=== PATIENT | female | born 1980 | race Caucasian/White ===

== ENCOUNTER → 2016-11-05 | Outpatient (CLI) | payer BC ==
[~2016-11-05] MED LIST: AMBI5TAB PO; PRENTAB50 PO; ZOLO50TA PO; [UNRECOGNIZED DRUG - CODE] PO
== END ==
LOC: HPND 09:16
PROVIDERS: ATTEND Obstetrics & Gynecology
DX: O09.521 Supervision of elderly multigravida, first trimester (principal); O34.211 Maternal care for low transverse scar from previous cesarean delivery; Z3A.13 13 weeks gestation of pregnancy
CPT/HCPCS: 36416; 76813

== ENCOUNTER → 2016-12-10 | Outpatient (CLI) | payer BC | LOC: HPND 09:09 | PROVIDERS: ATTEND Obstetrics & Gynecology | DX: O09.522 Supervision of elderly multigravida, second trimester (principal) | CPT/HCPCS: 76811 ==

== ENCOUNTER 2017-04-26 13:37 | Inpatient (IN) | payer SELFPAY ==
[~2017-04-26] VITALS: Ht 162.6 cm; Wt 81.6 kg
[2017-04-26] VITALS (41 sets, daily range): BP systolic 101–144; BP diastolic 62–109; PULSE 67–109; RESP 16–18; TEMP 97.7–98.7; O2SAT 98
[2017-04-26] MEDS ORDERED: LACTATED RINGER'S 1000 ML INJ 1,000 ML IV PRN (13:57)
[2017-04-26] MEDS ORDERED: LACTATED RINGER'S 1000 ML INJ 1,000 ML IV SCH (13:57)
[2017-04-26] MEDS ORDERED: LIDOCAINE HCL 1% 50 ML VIAL INFIL PRN (14:00)
[2017-04-26] MEDS ORDERED: SODIUM CHLORID 0.9% 500 ML INJ 500 ML IV PRN (14:00)
[2017-04-26] MEDS ORDERED: CITRIC ACID-SODIUM CITRATE LIQ 30 ML UDC PO SCH (14:00)
[2017-04-26] MEDS ORDERED: MINERAL OIL 10 ML VIAL TOPICAL PRN (14:00)
[2017-04-26] MEDS ORDERED: LIDOCAINE HCL 1% 50 ML VIAL I-DERMAL PRN (14:00)
[2017-04-26] MEDS ORDERED: OXYTOCIN 30 UNITS-500ML PREMIX 500 ML IV ONE (14:00)
[2017-04-26] MEDS ORDERED: ALPR.25 PO (14:04)
[2017-04-26] MEDS ORDERED: SODIUM CHLOR 0.9% 1000 ML INJ 1,000 ML IV PRN (14:17)
--- NOTE | 2017-04-26 14:36 | MH ---
cc: MELANIE COLLAZO DATE OF ADMISSION: 04/26/2017 ADMITTING DIAGNOSIS: 1. at 37-38 weeks, active labor. 2. Previous section. 3. Previous x2 HISTORY OF PRESENT ILLNESS: The patient is a 36-year-old white female para 3-0-0-2 with last menstrual period of 08/04/2016 and estimated date of confinement of 05/11/2017. Her preop course was benign. Her first delivery was by . Her second and third were successful VBACs. The second child at 3 months of age from a viral syndrome. ALLERGIES: Penicillin. PAST MEDICAL HISTORY: 1. Anxiety. 2. Depression. TRANSFUSIONS: None. OBSTETRICAL HISTORY: As mentioned in the history of present illness. SOCIAL HISTORY She is , homemaker. Alcohol, tobacco and drugs are none. FAMILY HISTORY: Her family history noncontributory. PHYSICAL EXAMINATION: GENERAL: A well-nourished well-developed white female. VITAL SIGNS: Stable. HEAD, EYES, EARS, NOSE, THROAT: Normal. CHEST: Clear. HEART: Regular rate. BREASTS: Symmetrical. ABDOMEN: Gravid. Estimated weight of 3300 grams. PELVIC EXAM: The cervix is 4 intact vertex. Heart tracing is normal. ASSESSMENT: As above. PLAN: She is now admitted for delivery. The patient requests an epidural. She is GBS negative. Anticipate a vaginal delivery. Should she have failure to progress or distress, would need a delivery and the patient wishes to proceed. MD CHRIS Hand/CHHAYA /2:01 PM /2:26 PM
[2017-04-26] MEDS ORDERED: fentaNYL 2MCG-BUPIV 0.125% INJ 100 ML ONE (14:56)
[2017-04-26 15:00] LABS: BASOPHIL % 0.4 % (0.0-2.0); EOSINOPHIL # 0.1 TH/MM3 (0-0.4); EOSINOPHIL % 0.5 % (0.0-4.0); HEMATOCRIT 34.3 % (35.0-46.0); HEMOGLOBIN 11.9 GM/DL (11.6-15.3); LYMPH % 13.7 % (9.0-44.0); LYMPHOCYTE # 1.7 TH/MM3 (1.0-4.8); MEAN CELL VOLUME 93.1 FL (80.0-100.0); MEAN CORPUSCULAR HEMOGLOBIN 32.3 PG (27.0-34.0); MEAN CORPUSCULAR HGB CONC 34.7 % (32.0-36.0); MEAN PLATELET VOLUME 7.5 FL (7.0-11.0); MONO % 5.6 % (0.0-8.0); MONOCYTE # 0.7 TH/MM3 (0-0.9); NEUT % 79.8 % (16.0-70.0); PLATELET COUNT 137 TH/MM3 (150-450); RED BLOOD COUNT 3.68 MIL/MM3 (4.00-5.30); RED CELL DISTRIBUTION WIDTH 12.5 % (11.6-17.2); WHITE BLOOD COUNT 12.5 TH/MM3 (4.0-11.0)
[2017-04-26] MEDS ORDERED: ePHEDrine/NS 25 MG/5 ML SYRINGE ONE (15:10)
[2017-04-26 15:28] LABS: BACTERIA, URINE RARE /hpf; BILIRUBIN, URINE NEG (NEG); BLOOD, URINE NEG (NEG); GLUCOSE,URINE NEG (NEG); KETONE, URINE TRACE mg/dL (NEG); NITRITE,URINE NEG (NEG); SQUAMOUS EPITHELIAL CELL URINE 1 /hpf (0-5); URINE COLOR LIGHT-YELLOW (YELLW/STRAW); URINE LEUKOCYTE ESTERASE NEG (NEG)
[2017-04-26] MEDS ORDERED: MEASLES, MUMPS, RUBELLA VACCINE 0.5 ML VIAL SQ ONE (16:00)
[2017-04-26] MEDS ORDERED: OXYTOCIN 30 UNITS/NS 500ML PREMIX IV PRN (18:30)
[2017-04-26] MEDS ORDERED: DOCUSATE SODIUM 50 MG/SENNA 8.6 MG TAB PO PRN (19:00)
[2017-04-26] MEDS ORDERED: WITCH HAZEL 50%/GLYCERIN 12.5% 40 PAD JAR TOPICAL PRN (19:00)
[2017-04-26] MEDS ORDERED: ALUMINUM/MAGNESIUM/SIMETH 30 ML CUP PO PRN (19:00)
[2017-04-26] MEDS ORDERED: ONDANSETRON ODT 4 MG TAB PO PRN (19:00)
[2017-04-26] MEDS ORDERED: SODIUM CHLORIDE 0.9% FLUSH 10 ML FLUSH IV FLUSH PRN (19:00)
[2017-04-26] MEDS ORDERED: OXYTOCIN 30 UNITS-500ML PREMIX 500 ML IV SCH (19:00)
[2017-04-26] MEDS ORDERED: ZOLPIDEM TARTRATE 5 MG TAB PO PRN (19:00)
[2017-04-26] MEDS ORDERED: BENZOCAINE 20% TOPICAL SPRAY 60 ML CAN TOPICAL PRN (19:00)
[2017-04-26] MEDS ORDERED: oxyCODONE/ACETAMINOPHEN 5 MG/325 MG TAB PO PRN ×2 (19:00)
[2017-04-26] MEDS ORDERED: SODIUM CHLORIDE 0.9% FLUSH 10 ML FLUSH IV FLUSH SCH (21:00)
[2017-04-26] MEDS: IBUPROFEN 800 MG TAB PO PRN (22:44)
[2017-04-27 05:54] LABS: AUTOMATED NEUTROPHIL # 7.8 TH/MM3 (1.8-7.7); BASOPHIL % 0.2 % (0.0-2.0); EOSINOPHIL # 0.1 TH/MM3 (0-0.4); HEMATOCRIT 30.5 % (35.0-46.0); LYMPH % 18.9 % (9.0-44.0); LYMPHOCYTE # 2.1 TH/MM3 (1.0-4.8); MEAN CELL VOLUME 92.2 FL (80.0-100.0); MEAN CORPUSCULAR HEMOGLOBIN 33.2 PG (27.0-34.0); MEAN PLATELET VOLUME 7.2 FL (7.0-11.0); MONO % 8.6 % (0.0-8.0); MONOCYTE # 0.9 TH/MM3 (0-0.9); NEUT % 71.3 % (16.0-70.0); PLATELET COUNT 123 TH/MM3 (150-450); RED BLOOD COUNT 3.31 MIL/MM3 (4.00-5.30); RED CELL DISTRIBUTION WIDTH 12.7 % (11.6-17.2)
[2017-04-27] MEDS: IBUPROFEN 800 MG TAB PO PRN ×2 (07:01→14:38)
[2017-04-27 08:00] VITALS: BP 105/69; PULSE 63; RESP 17; TEMP 97.6
[2017-04-27] MEDS ORDERED: DIPHTH/TETANUS/ACEL PERTUSSIS (BOOSTER) 0.5 ML VIAL/PFS IM ONE (17:45)
[2017-04-27] MEDS ORDERED: DIPHTH/TETANUS/ACELL PERTUSSIS PEDS 0.5 ML VIAL IM ONE (17:45)
[2017-04-27] MEDS: ACETAMINOPHEN 325 MG TAB PO PRN ×2 (18:02→21:11)
[2017-04-27 20:00] VITALS: BP 119/73; PULSE 74; RESP 18; TEMP 98; O2SAT 97
[2017-04-28] MEDS: IBUPROFEN 800 MG TAB PO PRN (03:50)
[2017-04-28 08:00] VITALS: BP 108/74; PULSE 60; RESP 18; TEMP 97.9; O2SAT 98
--- NOTE | 2017-04-28 08:08 | HHI.DCPOC ---
Discharge Care Plan Report Symptoms to Your Doctor -Temperature above 100.5 degrees -Redness, of incision or excessive or foul smelling drainage -Unusual pain or calf pain -Increased vaginal bleeding -Painful or difficulty urinating -Feelings of extreme sadness or anxiety after 2 weeks Goals to Promote Your Health * To prevent worsening of your condition and complications * To maintain your health at the optimal level Directions to Meet Your Goals Take your medications as prescribed Follow your dietary instruction Follow activity as directed Ensure plenty of rest for recovery Drink fluids for hydration Keep your appointments as scheduled Take your immunizations and boosters as scheduled If your symptoms worsen call your PCP, if no PCP go to Urgent Care Center or Emergency Room Smoking is Dangerous to Your Health. Avoid second hand smoke Call the 24-hour crisis hotline for domestic abuse at Robbin Meyer MD Apr 28, 2017 08:08
[2017-04-28] MEDS ORDERED: INFLUENZA VIRUS VACCINE (QUADRIVALENT) 0.5 ML SYR IM ONE (10:00)
--- NOTE | 2017-05-02 21:23 | MD ---
cc: MELANIE COLLAZO ADMISSION DATE: 04/26/2017 DISCHARGE DATE: 04/28/2017 ADMISSION DIAGNOSIS 1. at 38 weeks, active labor. 2. Previous . DISCHARGE DIAGNOSIS 1. at 38 weeks, active labor. 2. Previous . 3. Delivered. HISTORY OF PRESENT ILLNESS A 36-year-old white female para 3-0-0-2, had an LMP of 08/04/2016, EDC of 05/11/2017. She developed active labor on 04/18/17, was admitted to the hospital for delivery. She received epidural anesthesia, had arrested labor and was given Pitocin augmentation. She then progressed to a spontaneous vaginal delivery over an intact perineum, a viable vigorous male, Apgars 9 and 9. did well, discharged home in excellent condition on 04/28/2017. PAST MEDICAL HISTORY Notable for first delivery by for failure to progress and distress. Second, third and current delivered by . Past medical history notable anxiety and depression well-controlled with medical therapy. ALLERGIES PENICILLIN TRANSFUSIONS None. Her blood type is positive. GBS culture was negative. She was advised NPV light activity and carefully instructed in perineal and instruction in care. Return to see me in 6 weeks and call if any abnormal symptoms. She will continue her Zoloft, Xanax and vitamins. MD CHRIS Hand/ /8:09 AM /9:05 PM
== END 2017-04-28 10:56 | disposition home or self-care (01) | DRG 775 ==
LOC: HOBED 13:37 → H2EB 14:04 → H1EA 21:53
PROVIDERS: ADMIT Obstetrics & Gynecology; ATTEND Obstetrics & Gynecology
PROC: 10E0XZZ Delivery of Products of Conception, External Approach (ICD-10-PCS; principal; 2017-04-26)
PROC: 3E0R3BZ Introduction of Anesthetic Agent into Spinal Canal, Percutaneous Approach (ICD-10-PCS; 2017-04-26)
PROC: 00HU33Z Insertion of Infusion Device into Spinal Canal, Percutaneous Approach (ICD-10-PCS; 2017-04-26)
DX: O34.219 Maternal care for unspecified type scar from previous cesarean delivery (principal); O62.1 Secondary uterine inertia; O99.340 Other mental disorders complicating pregnancy, unspecified trimester; F32.9 Major depressive disorder, single episode, unspecified; F41.9 Anxiety disorder, unspecified; Z37.0 Single live birth; Z3A.38 38 weeks gestation of pregnancy; Z23 Encounter for immunization
CPT/HCPCS: 59025; 80307; 81001; 85025; 87086; 90686; 90715; 99285; G0481; Q2038

== ENCOUNTER 2017-05-01 14:48 | Observation (INO) | payer BC ==
[~2017-05-01] VITALS: Ht 160 cm; Wt 80.0 kg
[~2017-05-01 14:48] MED LIST changes: +ALPR.25 PO; -AMBI5TAB PO; -[UNRECOGNIZED DRUG - CODE] PO
[2017-05-01 14:51] VITALS: BP 169/97; PULSE 54; RESP 17; TEMP 98.1; O2SAT 98
[2017-05-01 16:10] VITALS: BP 159/87; PULSE 61; RESP 21; O2SAT 100
[2017-05-01] MEDS ORDERED: ALPRAZolam 0.25 MG TAB PO ONE (16:30)
[2017-05-01] MEDS ORDERED: PILL SPLITTER OTHER PRN (16:45)
[2017-05-01] MEDS ORDERED: ALPRAZolam 0.5 MG TAB PO ONE (16:45)
--- NOTE | 2017-05-01 17:26 | PD ---
HPI Chief Complaint: Chest Pain Time Seen by Provider: 16:12 Travel History International Travel<30 days: No Contact w/Intl Traveler<30days: No Traveled to known affect area: No History of Present Illness HPI This is a 36-year-old female who presents to the emergency department having onset of right-sided pleuritic chest pain that started yesterday suddenly in the evening, constant, severe, associated with some shortness of breath. She denies any fevers or chills. She denies any nausea or vomiting. She has never had pain like this before. She is 5 days after a . PFSH Past Medical History ?: Not Social History Alcohol Use: No Tobacco Use: No Substance Use: No Allergies-Medications (Allergen,Severity, Reaction): Coded Allergies: penicillin G (Unverified Allergy, Unknown, 04/26/17) Reported Meds & Prescriptions Reported Meds & Active Scripts Active Reported Xanax (Alprazolam) 0.25 Mg Tab 0.25 Mg PO Q8H PRN Zoloft (Sertraline HCl) 50 Mg Tab 50 Mg PO Q6HR PRN Formula A-Free ( Multivitamins) 1 Tab Tab 1 Tab PO DAILY Review of Systems Except as stated in HPI: all other systems reviewed are Neg Physical Exam Narrative GENERAL:Well appearing, no acute distress SKIN: Focused skin assessment warm and dry. HEAD: Atraumatic. Normocephalic. EYES: Pupils equal and round. No injection or drainage. ENT: Moist mucous membranes NECK: Trachea midline. CARDIOVASCULAR: Regular rate and rhythm. No murmur appreciated. RESPIRATORY: Clear to auscultation. Breath sounds equal bilaterally. GASTROINTESTINAL: Abdomen soft tender to palpation in the right upper quadrant with no rebound or guarding. MUSCULOSKELETAL: No obvious deformities. NEUROLOGICAL: Awake and alert. No obvious cranial nerve deficits. Moving all extremities. PSYCHIATRIC: Appropriate mood and affect; insight and judgment normal. Data Data Last Documented VS Vital Signs Date Time Temp Pulse Resp B/P (MAP) Pulse Ox O2 Delivery O2 Flow Rate FiO2 05/01/17 16:17 100 05/01/17 16:10 61 21 159/87 (111) 05/01/17 14:[address] Pulmonary Angiogram (05/01/17 ) Us Abdomen Gallbladder (05/01/17 ) Alprazolam (Xanax) (05/01/17 16:30) Alprazolam (Xanax) (05/01/17 16:45) Pill Splitter (Pill Splitter) (05/01/17 16:45) [facility] Medical Decision Making Medical Screen Exam Complete: Yes Emergency Medical Condition: Yes Differential Diagnosis Pulmonary embolism, cholelithiasis, cholecystitis, acute coronary syndrome Narrative Course This is a 36-year-old female who presents to the emergency department with right -sided pleuritic chest pain that started abruptly yesterday. She is 5 days . Concern is for pulmonary embolism given her symptoms. She also is quite tender in the right upper quadrant. Labs were done in labor and delivery which have normal LFTs. CT pulmonary angiogram and ultrasound of the right upper quadrant will be ordered. Patient was signed out to Dr. Beth for disposition. Massiel Hsieh MD May 01, 2017 17:26
--- NOTE | 2017-05-01 18:00 | RADRPT ---
EXAM DATE/TIME: 05/01/2017 17:14 [facility] COMPARISON: No previous studies available for comparison. INDICATIONS : Right upper quadrant pain. MEDICAL HISTORY : None. SURGICAL HISTORY : None. ENCOUNTER: Initial ACUITY: 3 days PAIN SCORE: 6/10 LOCATION: Right upper quadrant MEASUREMENTS: LIVER: 17.1 cm length COMMON DUCT: 4 mm RIGHT KIDNEY: 11.1 x 4.1 x 4.6 cm FINDINGS: LIVER: Normal echotexture without focal lesion or ductal dilatation. COMMON DUCT: No intraluminal mass or stone visualized. GALLBLADDER: Small calcified gallstones are seen within the neck of the gallbladder. There is gallbladder wall thi ckening which measures 10 mm in thickness. Trace pericholecystic fluid. PANCREAS: The visualized portions are within normal limits. RIGHT KIDNEY: No evidence of hydronephrosis, stone, or mass. CONCLUSION: 1. Sonographic findings suggesting acute cholecystitis. Chidi Horan Jr., MD on May 01, 2017 at 17:56 Board Certified Radiologist. This report was verified electronically.
[2017-05-01] MEDS ORDERED: IOHEXOL 350 MG/ML 10 ML VIAL (for RAD DIAG) IVCONTRAST ONE (18:42)
--- NOTE | 2017-05-01 18:56 | RADRPT ---
EXAM DATE/TIME: 05/01/2017 18:25 [facility] COMPARISON: No previous studies available for comparison. INDICATIONS : Chest pain 5 days post . IV CONTRAST: 80 cc Omnipaque 350 (iohexol) IV RADIATION DOSE: 20.32 CTDIvol (mGy) MEDICAL HISTORY : 5 days post . SURGICAL HISTORY : None. ENCOUNTER: Initial ACUITY: 1 day PAIN SCALE: 5/10 LOCATION: Chest TECHNIQUE: Volumetric scanning of the chest was performed using a pulmonary embolism protocol MIP images were re constructed. Using automated exposure control and adjustment of the mA and/or kV according to patien t size, radiation dose was kept as low as reasonably achievable to obtain optimal diagnostic quality images. DICOM format image data is available electronically for review and comparison. Follow-up recommendations for detected pulmonary nodules are based at a minimum on nodule size and pa tient risk factors according to Fleischner Society Guidelines. FINDINGS: PULMONARY ARTERIES: No filling defects are seen in the pulmonary arteries through the segmental level. LUNGS: There is no consolidation or pneumothorax . No concerning pulmonary nodule is visualized. PLEURAE: There is no pleural thickening or pleural effusion. MEDIASTINUM: There is good visualization of the great vessels of the middle mediastinum. No evidence of mediastin al or hilar adenopathy/mass. MUSCULOSKELETAL: Within normal limits for patient age. MISCELLANEOUS: Hepatosplenomegaly is noted. CONCLUSION: 1. No evidence of pulmonary embolism. 2. Hepatosplenomegaly. Merritt Cazares MD on May 01, 2017 at 18:50 Board Certified Radiologist. This report was verified electronically.
[2017-05-01 18:59] VITALS: BP 172/86; PULSE 56; RESP 16; TEMP 98.1; O2SAT 100
--- NOTE | 2017-05-01 19:42 | PD ---
Physical Exam Date Seen by Provider: May 01, 2017 Time Seen by Provider: 19:39 Narrative 36-year-old female 5 weeks came to the emergency room for pleuritic right-sided chest pain. She was seen by the previous ER physician. Please refer to her history and physical for further details. Signout was to follow- up on the ultrasound and CAT scan of the chest to rule out pulmonary embolism. The study reports are back. Patient does not have a PE but does have acute cholecystitis. Patient has a 5-day-old baby who she is breast-feeding and is currently making a decision whether she wants to stay to get the surgery. I have explained the disease and the process of admission and surgery and answered all the questions to the best of my ability. If patient chooses to stay I will give her a dose of IV antibiotic and admit her to the hospitalist. Awaiting for their decision. There was blood test done by OB this morning that were within acceptable limits. Patient is currently pain tolerant. Data Data Last Documented VS Vital Signs Date Time Temp Pulse Resp B/P (MAP) Pulse Ox O2 Delivery O2 Flow Rate FiO2 05/01/17 18:59 98.1 56 16 172/86 (114) [address] Orders Orders [address] Pulmonary Angiogram (05/01/17 ) Us Abdomen Gallbladder (05/01/17 ) Alprazolam (Xanax) (05/01/17 16:30) Alprazolam (Xanax) (05/01/17 16:45) Pill Splitter (Pill Splitter) (05/01/17 16:45) Iohexol 350 Inj (Omnipaque 350 Inj) (05/01/17 18:42) Kit, Breast Dbl Duet Initiatio (05/01/17 19:42) Admit Order (Ed Use Only) (05/01/17 19:59) [facility] Supervised Visit with ALLYN: No Diagnosis Primary Impression: Acute cholecystitis Admitting Information Admitting Physician Requests: Admit Scripts Hydrocodone-Acetaminophen ([place]) 5 Mg-325 Mg Tab 1 TAB PO Q6H Y for PAIN, #15 TAB 0 Refills Prov: Devang Morales MD 05/02/17 Jackelyn Beth MD May 01, 2017 19:42
[2017-05-01] MEDS ORDERED: ONDANSETRON HCL 4 MG/2 ML VIAL IVP PRN (20:15)
[2017-05-01] MEDS ORDERED: MORPHINE SULFATE 4 MG/ML INJ IV PUSH PRN (20:15)
[2017-05-01] MEDS ORDERED: LACTULOSE SYRUP 20 GM/30 ML CUP PO PRN (20:15)
[2017-05-01] MEDS ORDERED: MORPHINE SULFATE 2 MG/ML INJ IV PUSH PRN (20:15)
[2017-05-01] MEDS ORDERED: ACETAMINOPHEN 325 MG TAB PO PRN (20:15)
[2017-05-01] MEDS ORDERED: SODIUM CHLORIDE 0.9% FLUSH 10 ML FLUSH IV FLUSH PRN (20:15)
[2017-05-01] MEDS ORDERED: SENNOSIDES 8.6 MG TAB PO PRN (20:15)
[2017-05-01] MEDS ORDERED: MAGNESIUM HYDROXIDE SUSP 30 ML CUP PO PRN (20:15)
[2017-05-01] MEDS ORDERED: NALOXONE HCL 0.4 MG/ML AMP IV PUSH PRN (20:15)
[2017-05-01] MEDS ORDERED: BISACODYL 10 MG SUPP RECTAL PRN (20:15)
--- NOTE | 2017-05-01 20:22 | HHI.HP ---
[facility] Service [facility] Primary Care Physician No Primary Care Physician Admission Diagnosis Acute cholecystitis, Diagnoses: Travel History International Travel<30 Days: No Contact w/Intl Traveler <30 Da: No Traveled to Known Affected Are: No History of Present Illness 36-year-old female who is day 5 status post presents to the emergency department complaining of chest pain. She states the chest pain began last night and is worse with inspiration. She called her fashion designer, Dr. Weinstein, who instructed her to come to the emergency department for further evaluation. The patient was seen in the OB ED where preeclampsia was ruled out. She was sent to maintain the ED for further workup. CTA negative for PE. Ultrasound of the gallbladder showed acute cholecystitis. The patient denies nausea/vomiting. Denies fever/chills. Endorses right upper quadrant pain, worse with palpation and deep inspiration. Review of Systems Except as stated in HPI: all other systems reviewed are Neg Past Family Social History Past Medical History Depression/anxiety Past Surgical History 1 Reported Medications Reported Meds & Active Scripts Active Reported Xanax (Alprazolam) 0.25 Mg Tab 0.25 Mg PO Q8H PRN Zoloft (Sertraline HCl) 50 Mg Tab 50 Mg PO Q6HR PRN Formula A-Free ( Multivitamins) 1 Tab Tab 1 Tab PO DAILY Allergies: Coded Allergies: penicillin G (Unverified Allergy, Unknown, 04/26/17) Family History Negative for CAD/DM Social History Denies tobacco, illicit drugs. Occasional alcohol. Physical Exam Vital Signs Vital Signs Date Time Temp Pulse Resp B/P (MAP) Pulse Ox O2 Delivery O2 Flow Rate FiO2 05/01/17 18:59 98.1 56 16 172/86 (114) 100 Room Air 05/01/17 16:17 100 05/01/17 16:10 61 21 159/87 (111) 100 05/01/17 14:51 98.1 54 17 169/97 (121) 98 Physical Exam GENERAL: female sitting up in bed, tearful SKIN: No rashes, ecchymoses or lesions. Cool and dry. HEAD: Atraumatic. Normocephalic. No temporal or scalp tenderness. EYES: Pupils equal round and reactive. Extraocular motions intact. No scleral icterus. No injection or drainage. ENT: Nose without bleeding, purulent drainage or septal hematoma. Throat without erythema, tonsillar hypertrophy or exudate. Uvula midline. Airway patent. NECK: Trachea midline. No JVD or lymphadenopathy. Supple, nontender, no meningeal signs. CARDIOVASCULAR: Regular rate and rhythm without murmurs, gallops, or rubs. RESPIRATORY: Clear to auscultation. Breath sounds equal bilaterally. No wheezes , rales, or rhonchi. GASTROINTESTINAL: Abdomen soft, nondistended. Tender to palpation in the right upper quadrant. Positive Dove's sign. No hepato-splenomegaly, or palpable masses. No guarding. MUSCULOSKELETAL: Extremities without clubbing, cyanosis, or edema. No joint tenderness, effusion, or edema noted. No calf tenderness. NEUROLOGICAL: Awake and alert. Cranial nerves II through XII intact. Motor and sensory grossly within normal limits. Normal speech. Caprini VTE Risk Assessment Caprini VTE Risk Assessment: No/Low Risk (score <= 1) Caprini Risk Assessment Model Point Value = 1 Point Value = 2 Point Value = 3 Point Value = 5 Age 41-60 Minor surgery BMI > 25 kg/m2 Swollen legs Varicose veins or History of unexplained or recurrent spontaneous Oral contraceptives or hormone replacement Sepsis (< 1 month) Serious lung disease, including pneumonia (< 1 month) Abnormal pulmonary function Acute myocardial infarction Congestive heart failure (< 1 month) History of inflammatory bowel disease Medical patient at bed rest Age 61-74 Arthroscopic surgery Major open surgery (> 45 min) Laparoscopic surgery (> 45 min) Malignancy Confined to bed (> 72 hours) Immobilizing plaster cast Central venous access Age >= 75 History of VTE Family history of VTE Factor V Leiden Prothrombin [id number] Lupus anticoagulant Anticardiolipin antibodies Elevated serum homocysteine Heparin-induced thrombocytopenia Other congenital or acquired thrombophilia Stroke (< 1 month) Elective arthroplasty Hip, pelvis, or leg fracture Acute spinal cord injury (< 1 month) Prophylaxis Regimen Total Risk Factor Score Risk Level Prophylaxis Regimen 0-1 Low Early ambulation 2 Moderate Order ONE of the following: *Sequential Compression Device (SCD) *Heparin 5000 units SQ BID 3-4 Higher Order ONE of the following medications: *Heparin 5000 units SQ TID *Enoxaparin/Lovenox 40 mg SQ daily (WT < 150 kg, CrCl > 30 mL/min) *Enoxaparin/Lovenox 30 mg SQ daily (WT < 150 kg, CrCl > 10-29 mL/min) *Enoxaparin/Lovenox 30 mg SQ BID (WT < 150 kg, CrCl > 30 mL/min) AND/OR *Sequential Compression Device (SCD) 5 or more Highest Order ONE of the following medications: *Heparin 5000 units SQ TID (Preferred with Epidurals) *Enoxaparin/Lovenox 40 mg SQ daily (WT < 150 kg, CrCl > 30 mL/min) *Enoxaparin/Lovenox 30 mg SQ daily (WT < 150 kg, CrCl > 10-29 mL/min) *Enoxaparin/Lovenox 30 mg SQ BID (WT < 150 kg, CrCl > 30 mL/min) AND *Sequential Compression Device (SCD) Assessment and Plan Assessment and Plan Assessment/plan: 1. Acute cholecystitis Gallbladder ultrasound findings suggestive of acute cholecystitis Nothing by mouth Rocephin Morphine General surgery consulted, appreciate assistance Anticipate operative intervention in the morning 2. Patient is day #5 status post Reports mild to moderate vaginal bleeding No signs of infection Monitor 3. Anxiety Ativan when necessary FEN NPO Electrolytes: monitor and replete prn NS at 100 cc/hr Ambulation Physician Certification 2 Midnight Certification Type: Admission for Inpatient Services Order for Inpatient Services The services are ordered in accordance with Medicare regulations or non- Medicare payer requirements, as applicable. In the case of services not specified as inpatient-only, they are appropriately provided as inpatient services in accordance with the 2-midnight benchmark. Estimated LOS (days): 2 2 days is the estimated time the patient will need to remain in the hospital, assuming treatment plan goals are met and no additional complications. Post-Hospital Plan: Not yet determined Nell Dunn MD May 01, 2017 20:22
[2017-05-01] MEDS ORDERED: SODIUM CHLORIDE 0.9% FLUSH 10 ML FLUSH IV FLUSH SCH (21:00)
[2017-05-01] MEDS ORDERED: cefTRIAXone INJ 1,000 MG in SODIUM CHLORIDE 0.9% INJ 100 ML IV SCH (21:00)
[2017-05-01] MEDS: LORazepam 2 MG/ML VIAL IV PUSH PRN (21:15)
[2017-05-01 22:19] VITALS: BP 152/99; PULSE 55; RESP 16; TEMP 96.9; O2SAT 99
[2017-05-01] MEDS: SODIUM CHLOR 0.9% 1000 ML INJ 1,000 ML IV SCH (22:32)
[2017-05-01] MEDS ORDERED: POVIDONE IODINE 5% (ANTISEPSIS KIT) 4 APPLICATIONS EACH NARE PRN (23:45)
[2017-05-01] MEDS ORDERED: CHLORHEXIDINE GLUCONATE 2 % 1 PACK (2 CLOTHS) TOPICAL PRN (23:45)
[2017-05-01] MEDS ORDERED: LACTATED RINGER'S 1000 ML IV PRN (23:45)
[2017-05-02] VITALS: BP 163/89; PULSE 51; RESP 16; TEMP 96.3; O2SAT 97
[2017-05-02] MEDS ORDERED: traMADol HCL 50 MG TAB PO ONE (01:00)
[2017-05-02] MEDS: LORazepam 2 MG/ML VIAL IV PUSH PRN (01:15)
[2017-05-02 05:00] VITALS: BP 162/95; PULSE 60; RESP 18; TEMP 97.1; O2SAT 98
[2017-05-02] MEDS: SODIUM CHLOR 0.9% 1000 ML INJ 1,000 ML IV SCH (06:35)
[2017-05-02 07:14] LABS: AUTOMATED NEUTROPHIL # 4.5 TH/MM3 (1.8-7.7); BASOPHIL % 0.5 % (0.0-2.0); EOSINOPHIL # 0.2 TH/MM3 (0-0.4); EOSINOPHIL % 2.4 % (0.0-4.0); HEMATOCRIT 34.5 % (35.0-46.0); LYMPH % 27.8 % (9.0-44.0); LYMPHOCYTE # 2.1 TH/MM3 (1.0-4.8); MEAN CELL VOLUME 93.8 FL (80.0-100.0); MEAN CORPUSCULAR HEMOGLOBIN 32.6 PG (27.0-34.0); MEAN CORPUSCULAR HGB CONC 34.7 % (32.0-36.0); MEAN PLATELET VOLUME 7.3 FL (7.0-11.0); MONO % 8.3 % (0.0-8.0); MONOCYTE # 0.6 TH/MM3 (0-0.9); PLATELET COUNT 193 TH/MM3 (150-450); RED BLOOD COUNT 3.67 MIL/MM3 (4.00-5.30); RED CELL DISTRIBUTION WIDTH 12.7 % (11.6-17.2); WHITE BLOOD COUNT 7.4 TH/MM3 (4.0-11.0)
[2017-05-02 07:24] LABS: ALBUMIN 2.7 GM/DL (3.4-5.0); AST (GOT) 58 U/L (15-37); BICARBONATE 24.7 MEQ/L (21.0-32.0); BLOOD UREA NITROGEN 11 MG/DL (7-18); CALCIUM 7.5 MG/DL (8.5-10.1); CHLORIDE 109 MEQ/L (98-107); CREATININE 0.51 MG/DL (0.50-1.00); GLOMERULAR FILTRATION RATE 137 ML/MIN (>89); GLUCOSE,RANDOM 90 MG/DL (74-106); SODIUM (NA) 142 MEQ/L (136-145)
[2017-05-02 07:25] LABS: ALT (GPT) 80 U/L (10-53)
[2017-05-02 07:27] LABS: ALKALINE PHOSPHATASE 108 U/L (45-117); TOTAL BILIRUBIN ADULT 0.3 MG/DL (0.2-1.0); TOTAL PROTEIN 6.2 GM/DL (6.4-8.2)
[2017-05-02] MEDS ORDERED: ceFAZolin INJ 1,000 MG VIAL ONE (07:41)
[2017-05-02] MEDS ORDERED: BUPIVACAINE/EPINEPHRINE 0.5% PF 30 ML VIAL ONE (07:41)
[2017-05-02 08:00] VITALS: BP 145/98; PULSE 63; RESP 17; TEMP 96.4; O2SAT 98
--- NOTE | 2017-05-02 08:07 | MB ---
cc: MELANIE COLLAZO,BEST Atkinson M.D. DATE OF CONSULTATION 05/01/2017 REASON FOR CONSULTATION Cholelithiasis, cholecystitis. HISTORY OF PRESENT ILLNESS This is a pleasant 36-year-old female who 5 days ago had her baby. She then woke up today and was having some exquisite right-sided chest pain, specifically with deep breathing. She never had experienced this pain before. She had an anxiety attack. She came to emergency room. Because of her previous a CT angiography was done to rule out PE which was negative. An ultrasound was done showing inflamed gallbladder consistent with cholecystitis. Her symptomatology she did not realize was she was having pain in her right upper quadrant. She had some mild nausea. Never experienced any pain like this before. REVIEW OF SYSTEMS She had some mild chest pain associated with deep breathing. No neurologic symptoms. No real shortness of breath besides. She does have deep breathing pain. No endocrine, urologic or other GI problems. She has had four pregnancies. She is 5 days out from delivery MEDICATIONS 1. Xanax. 2. vitamins. 3. Zoloft. ALLERGIES PENICILLIN. PHYSICAL EXAMINATION GENERAL: She is sitting up in her room. She points to her right upper quadrant and says she has fairly severe pain. NECK: Supple. CHEST: Clear. HEART: Regular rate. ABDOMEN: , distended with exquisite tenderness in the right upper quadrant. Positive Dove's. EXTREMITIES: Moves all extremities. No clubbing, cyanosis or edema. NEUROLOGIC: She is alert, oriented, somewhat anxious about her medical condition and concerned about her child. LABORATORY DATA White count 8, H&H 11 and 33. Chemistry shows normal LFTs except for AST slightly elevated at 38. Albumin is 2.9. BUN is 12. Urinalysis is clear. IMAGING STUDIES She had a gallbladder ultrasound which showed findings consistent with acute cholecystitis, thick gallbladder wall, cholecystic fluid, gallstones in the neck of the gallbladder. She had a CTA as well with no evidence of PE. ASSESSMENT A pleasant 36-year-old female about 5-6 days with acute cholecystitis fairly symptomatic. PLAN She has been admitted to the hospital. I have gotten some time in the operating room at 8 o'clock tomorrow. I discussed with her in detail the planned operative procedure which will be performed and she appears to understand and is anxious to proceed to she can get home. MD MIKAYLA Tello/JAMAL /9:39 PM /7:54 AM JAYLEN
--- NOTE | 2017-05-02 08:56 | HHI.PR ---
cc: Devang Morales MD Immediate Post Op Note Procedure Date: May 02, 2017 Pre Op Diagnosis: (1) Right upper quadrant pain (2) Gallstones (3) Acute cholecystitis Post Op Diagnosis: (1) Acute cholecystitis (2) Gallstones (3) Right upper quadrant pain Surgeon: Devang Morales Caustic Mixer(s): Please refer to OR record Procedure: Laparoscopic cholecystectomy Findings: Inflamed gallbladder and contents Complications: None Specimen(s) removed: Gallbladder Estimated blood loss: 25 cc Anesthesia: General Drains: None IVF Patient to: PACU Patient Condition: Good Implant/Devices: SEE IMPLANT LOG (if applicable) Date/Time of Procedure: SEE SURGICAL CARE RECORD Devang Morales MD May 02, 2017 08:56
[2017-05-02] MEDS ORDERED: NORC5TAB PO (08:57)
[2017-05-02] MEDS ORDERED: *MEPERIDINE 25 MG INJ VIAL PERIprocedural Use ONLY ONE (09:08)
[2017-05-02] MEDS ORDERED: MIDAZOLAM HCL 2 MG/2 ML VIAL ONE (09:12)
[2017-05-02] MEDS ORDERED: DO NOT ADM ANY ANTICOAGULANT DRUGS PRN (09:30)
[2017-05-02 09:56] VITALS: BP 154/92; PULSE 72; RESP 17; TEMP 96.9; O2SAT 95
--- NOTE | 2017-05-02 11:25 | HHI.PR ---
Subjective Remarks 36-year-old female who is day 5 status post presents to the emergency department complaining of chest pain. She states the chest pain began last night and is worse with inspiration. She called her web services developer, Dr. Weinstein, who instructed her to come to the emergency department for further evaluation. The patient was seen in the OB ED where preeclampsia was ruled out. She was sent to maintain the ED for further workup. CTA negative for PE. Ultrasound of the gallbladder showed acute cholecystitis. The patient denies nausea/vomiting. Denies fever/chills. Endorses right upper quadrant pain, worse with palpation and deep inspiration. 2-3 SP LAP DESTINY BY SURGERY DC TO HOME LATER TODAY DW RN AND PT AND CM SOME ABDOMINAL TENDERNESS Objective Vitals Vital Signs Date Time Temp Pulse Resp B/P (MAP) Pulse Ox O2 Delivery O2 Flow Rate FiO2 05/02/17 09:56 96.9 72 17 154/92 (112) 95 05/02/17 09:45 98.2 70 14 159/95 (116) 99 Room Air 05/02/17 09:30 72 13 142/89 (106) 98 Nasal Cannula 2 05/02/17 09:15 73 14 144/89 (107) 99 Nasal Cannula 2 05/02/17 09:07 97.8 82 14 158/90 (112) 100 Nasal Cannula 2 05/02/17 08:00 96.4 63 17 145/98 (114) 98 05/02/17 05:00 97.1 60 18 162/95 (117) 98 05/02/17 00:00 96.3 51 16 163/89 (113) 97 05/01/17 22:19 96.9 55 16 152/99 (116) 99 05/01/17 21:58 05/01/17 18:59 98.1 56 16 172/86 (114) 100 Room Air 05/01/17 16:17 100 05/01/17 16:10 61 21 159/87 (111) 100 05/01/17 14:51 98.1 54 17 169/97 (121) 98 I/O 05/01/17 05/01/17 05/01/17 05/02/17 05/02/17 05/02/17 07:00 15:00 23:00 07:00 15:00 23:00 Intake Total 700 ml 1020 ml Output Total 700 ml 25 ml Balance 0 ml 995 ml Intake Oral 20 ml IV Total 700 ml 1000 ml Output Urine Total 700 ml Estimated Blood Loss 25 ml # Voids 1 0 Result Diagram: 05/02/1760405/02/17604 Other Results Laboratory Tests Test 05/02/17 06:05 White Blood Count 7.4 TH/MM3 Red Blood Count 3.67 MIL/MM3 Hemoglobin 12.0 GM/DL Hematocrit 34.5 % Mean Corpuscular Volume 93.8 FL Mean Corpuscular Hemoglobin 32.6 PG Mean Corpuscular Hemoglobin Concent 34.7 % Red Cell Distribution Width 12.7 % Platelet Count 193 TH/MM3 Mean Platelet Volume 7.3 FL Neutrophils (%) (Auto) 61.0 % Lymphocytes (%) (Auto) 27.8 % Monocytes (%) (Auto) 8.3 % Eosinophils (%) (Auto) 2.4 % Basophils (%) (Auto) 0.5 % Neutrophils # (Auto) 4.5 TH/MM3 Lymphocytes # (Auto) 2.1 TH/MM3 Monocytes # (Auto) 0.6 TH/MM3 Eosinophils # (Auto) 0.2 TH/MM3 Basophils # (Auto) 0.0 TH/MM3 CBC Comment DIFF FINAL Differential Comment Blood Urea Nitrogen 11 MG/DL Creatinine 0.51 MG/DL Random Glucose 90 MG/DL Total Protein 6.2 GM/DL Albumin 2.7 GM/DL Calcium Level 7.5 MG/DL Alkaline Phosphatase 108 U/L Aspartate Amino Transf (AST/SGOT) 58 U/L Alanine Aminotransferase (ALT/SGPT) 80 U/L Total Bilirubin 0.3 MG/DL Sodium Level 142 MEQ/L Potassium Level 3.5 MEQ/L Chloride Level 109 MEQ/L Carbon Dioxide Level 24.7 MEQ/L Anion Gap 8 MEQ/L Estimat Glomerular Filtration Rate 137 ML/MIN Imaging Last Impressions Gall Bladder Ultrasound 05/01/17 0000 Signed Impressions: Service Date/Time: Monday, May 01, 2017 17:14 - CONCLUSION: 1. Sonographic findings suggesting acute cholecystitis. Chidi Horan Jr., MD CT Angiography 05/01/17 0000 Signed Impressions: Service Date/Time: Monday, May 01, 2017 18:25 - CONCLUSION: 1. No evidence of pulmonary embolism. 2. Hepatosplenomegaly. Merritt Cazares MD Objective Remarks GENERAL: Awake alert oriented talkative and cooperative wants to go home later today SKIN: Warm and dry. HEAD: Atraumatic. Normocephalic. EYES: Pupils equal and round. No scleral icterus. No injection or drainage. Extraocular muscles intact ENT: No nasal bleeding or discharge. Mucous membranes pink and moist. Tongue is midline supple NECK: Trachea midline. No JVD. CARDIOVASCULAR: Regular rate and rhythm. S1 and S2 no S3 or S4 RESPIRATORY: No accessory muscle use. Clear to auscultation. Breath sounds equal bilaterally. GASTROINTESTINAL: Abdomen soft, non-tender, nondistended. Hepatic and splenic margins not palpable. MUSCULOSKELETAL: Extremities without clubbing, cyanosis, or edema. No obvious deformities. NEUROLOGICAL: Awake and alert. No obvious cranial nerve deficits. Motor grossly within normal limits. Five out of 5 muscle strength in the arms and legs. Normal speech. PSYCHIATRIC: Appropriate mood and affect; insight and judgment normal. Procedures Immediate Post Op Note Procedure Date: May 02, 2017 Pre Op Diagnosis: (1) Right upper quadrant pain (2) Gallstones (3) Acute cholecystitis Post Op Diagnosis: (1) Acute cholecystitis (2) Gallstones (3) Right upper quadrant pain Surgeon: Devang Morales Plumbing Installer(s): Please refer to OR record Procedure: Laparoscopic cholecystectomy Findings: Inflamed gallbladder and contents Complications: None Specimen(s) removed: Gallbladder Estimated blood loss: 25 cc Anesthesia: General Drains: None IVF Patient to: PACU Patient Condition: Good Implant/Devices: SEE IMPLANT LOG (if applicable) Date/Time of Procedure: SEE SURGICAL CARE RECORD Medications and IVs Current Medications Alprazolam (Xanax) 0.25 mg ONCE ONCE PO ; Start 05/01/17 at 16:30; Stop 05/01/17 at 16:31; Status DC Alprazolam (Xanax) 0.25 mg ONCE ONCE PO Last administered on 05/01/17at 16:46; Start 05/01/17 at 16:45; Stop 05/01/17 at 16:46; Status DC Miscellaneous (Pill Splitter) 1 ea UNSCH PRN OTHER SEE LABEL COMMENTS; Start at 16:45 Iohexol (Omnipaque 350 Inj) 80 ml STK-MED ONCE IVCONTRAST Last administered on 05/01/17at 18:42; Start 05/01/17 at 18:42; Stop 05/01/17 at 18:43; Status DC Sodium Chloride 1,000 ml @ 100 mls/hr Q10H IV Last administered on 05/02/17at 06 :35; Start 05/01/17 at 20:02 Sodium Chloride (NS Flush) 2 ml UNSCH PRN IV FLUSH FLUSH AFTER USING IV ACCESS ; Start 05/01/17 at 20:15 Sodium Chloride (NS Flush) 2 ml BID IV FLUSH Last administered on 05/01/17at 21: 14; Start 05/01/17 at 21:00 Acetaminophen (Tylenol) 650 mg Q4H PRN PO TEMP > 100.4; Start 05/01/17 at 20:15 Ondansetron HCl (Zofran Inj) 4 mg Q6H PRN IVP NAUSEA OR VOMITING; Start at 20:15 Naloxone HCl (Narcan Inj) 0.4 mg UNSCH PRN IV PUSH SEE LABEL COMMENTS; Start at 20:15 Magnesium Hydroxide (Milk Of Magnesia Liq) 30 ml Q12H PRN PO Mild constipation ; Start 05/01/17 at 20:15 Sennosides (Senokot) 17.2 mg Q12H PRN PO Moderate constipation; Start 05/01/17 at 20:15 Bisacodyl (Dulcolax Supp) 10 mg DAILY PRN RECTAL SEVERE CONSITIPATION; Start at 20:15 Lactulose (Lactulose Liq) 30 ml DAILY PRN PO SEVERE CONSITIPATION; Start at 20:15 Morphine Sulfate (Morphine Inj) 2 mg Q3H PRN IV PUSH pain 1-5 Last administered on 05/01/17at 21:14; Start 05/01/17 at 20:15 Lorazepam (Ativan Inj) 1 mg Q4H PRN IV PUSH anxiety Last administered on at 01:15; Start 05/01/17 at 20:15 Ceftriaxone Sodium 1000 mg/ Sodium Chloride 100 ml @ 200 mls/hr Q24H IV Last administered on 05/01/17at 21:14; Start 05/01/17 at 21:00 Morphine Sulfate (Morphine Inj) 4 mg Q3HR PRN IV PUSH Pain 6-10 Last administered on 05/02/17at 04:44; Start 05/01/17 at 20:15 Lactated Ringer's 1,000 ml @ 30 mls/hr Q24H PRN IV SEE LABEL COMMENTS; Start at 23:45; Stop 05/04/17 at 23:44 Povidone Iodine (Betadine 5% Antisepsis Kit) 1 applic MILK OF LIME SLAKER PRN EACH NARE SEE LABEL COMMENTS; Start 05/01/17 at 23:45; Stop 05/04/17 at 23:44 Chlorhexidine Gluconate (Chlorhexidine 2% Cloth) 3 pack MILK OF LIME SLAKER PRN TOPICAL SEE LABEL COMMENTS; Start 05/01/17 at 23:45; Stop 05/04/17 at 23:44 Tramadol HCl (Ultram) 50 mg ONCE ONCE PO Last administered on 05/02/17at 01:13; Start 05/02/17 at 01:00; Stop 05/02/17 at 01:02; Status DC Bupivacaine HCl/ Epinephrine Bitart (Sensorcaine-Epinephrine Pf 0.5% Inj) 30 ml STK-MED ONCE .ROUTE Last administered on 05/02/17at 08:23; Start 05/02/17 at 07:41 ; Stop 05/02/17 at 07:42; Status DC Cefazolin Sodium (Ancef Inj) 1,000 mg STK-MED ONCE .ROUTE ; Start 05/02/17 at 07: 41; Stop 05/02/17 at 07:42; Status DC Meperidine HCl (*DEMEROL INJ PERIprocedural ONLY) 25 mg STK-MED ONCE .ROUTE Last administered on 05/02/17at 09:08; Start 05/02/17 at 09:08; Stop 05/02/17 at 09: 09; Status DC Fentanyl Citrate (fentaNYL INJ) 100 mcg STK-MED ONCE .ROUTE ; Start 05/02/17 at 09:11; Stop 05/02/17 at 09:12; Status DC Fentanyl Citrate (fentaNYL INJ) 200 mcg STK-MED ONCE .ROUTE ; Start 05/02/17 at 09:12; Stop 05/02/17 at 09:13; Status DC Midazolam HCl (Versed Inj) 2 mg STK-MED ONCE .ROUTE ; Start 05/02/17 at 09:12; Stop 05/02/17 at 09:13; Status DC Miscellaneous Information ALL NURSING DEPARTME... UNSCH PRN .XX SEE LABEL COMMENTS; Start 05/02/17 at 09:30; Stop 05/03/17 at 09:29 A/P Assessment and Plan Assessment and Plan Assessment/plan: 1. Acute cholecystitis Gallbladder ultrasound findings suggestive of acute cholecystitis Nothing by mouth Rocephin Morphine General surgery consulted, appreciate assistance Anticipate operative intervention in the morning Status post lap cholecystectomy on May 02 2. Patient is day #6 status post Reports mild to moderate vaginal bleeding No signs of infection Monitor 3. Anxiety Ativan when necessary FEN NPO Electrolytes: monitor and replete prn NS at 100 cc/hr Ambulation Can be discharged later today if tolerating a diet has been cleared by surgery already Discharge Planning Later today if tolerates diet Gene Blair DO May 02, 2017 11:25
--- NOTE | 2017-05-02 11:31 | HHI.DS ---
Discharge Summary Admission Date May 01, 2017 at 20:01 Discharge Date: May 02, 2017 Admitting Diagnosis Acute cholecystitis, (1) Acute cholecystitis ICD Code: K81.0 - Acute cholecystitis Diagnosis: Principal Status: Acute (2) Gallstones ICD Code: K80.20 - Calculus of gallbladder without cholecystitis without obstruction Diagnosis: Principal (3) Right upper quadrant pain ICD Code: R10.11 - Right upper quadrant pain Diagnosis: Principal (4) Status post laparoscopic cholecystectomy ICD Code: Z90.49 - Acquired absence of other specified parts of digestive tract Diagnosis: Principal Procedures Immediate Post Op Note Procedure Date: May 02, 2017 Pre Op Diagnosis: (1) Right upper quadrant pain (2) Gallstones (3) Acute cholecystitis Post Op Diagnosis: (1) Acute cholecystitis (2) Gallstones (3) Right upper quadrant pain Surgeon: Devang Morales Harness Maker(s): Please refer to OR record Procedure: Laparoscopic cholecystectomy Findings: Inflamed gallbladder and contents Complications: None Specimen(s) removed: Gallbladder Estimated blood loss: 25 cc Anesthesia: General Drains: None IVF Patient to: PACU Patient Condition: Good Implant/Devices: SEE IMPLANT LOG (if applicable) Date/Time of Procedure: SEE SURGICAL CARE RECORD Brief History - From Admission 36-year-old female who is day 5 status post presents to the emergency department complaining of chest pain. She states the chest pain began last night and is worse with inspiration. She called her bicycle repairman, Dr. Weinstein, who instructed her to come to the emergency department for further evaluation. The patient was seen in the OB ED where preeclampsia was ruled out. She was sent to maintain the ED for further workup. CTA negative for PE. Ultrasound of the gallbladder showed acute cholecystitis. The patient denies nausea/vomiting. Denies fever/chills. Endorses right upper quadrant pain, worse with palpation and deep inspiration. CBC/BMP: 05/02/17 0605 05/02/17 0605 Significant Findings Laboratory Tests Test 05/02/17 06:05 Red Blood Count 3.67 MIL/MM3 (4.00-5.30) Hematocrit 34.5 % (35.0-46.0) Monocytes (%) (Auto) 8.3 % (0.0-8.0) Total Protein 6.2 GM/DL (6.4-8.2) Albumin 2.7 GM/DL (3.4-5.0) Calcium Level 7.5 MG/DL (8.5-10.1) Aspartate Amino Transf (AST/SGOT) 58 U/L (15-37) Alanine Aminotransferase (ALT/SGPT) 80 U/L (10-53) Chloride Level 109 MEQ/L (98-107) Imaging Last Impressions Gall Bladder Ultrasound 05/01/17 Signed Impressions: Service Date/Time: Monday, May 01, 2017 17:14 - CONCLUSION: 1. Sonographic findings suggesting acute cholecystitis. Chidi Horan Jr., MD CT Angiography 05/01/17 0000 Signed Impressions: Service Date/Time: Monday, May 01, 2017 18:25 - CONCLUSION: 1. No evidence of pulmonary embolism. 2. Hepatosplenomegaly. Merritt Cazares MD PE at Discharge GENERAL: Awake alert oriented talkative and cooperative wants to go home later today SKIN: Warm and dry. HEAD: Atraumatic. Normocephalic. EYES: Pupils equal and round. No scleral icterus. No injection or drainage. Extraocular muscles intact ENT: No nasal bleeding or discharge. Mucous membranes pink and moist. Tongue is midline supple NECK: Trachea midline. No JVD. CARDIOVASCULAR: Regular rate and rhythm. S1 and S2 no S3 or S4 RESPIRATORY: No accessory muscle use. Clear to auscultation. Breath sounds equal bilaterally. GASTROINTESTINAL: Abdomen soft, non-tender, nondistended. Hepatic and splenic margins not palpable. MUSCULOSKELETAL: Extremities without clubbing, cyanosis, or edema. No obvious deformities. NEUROLOGICAL: Awake and alert. No obvious cranial nerve deficits. Motor grossly within normal limits. Five out of 5 muscle strength in the arms and legs. Normal speech. PSYCHIATRIC: Appropriate mood and affect; insight and judgment normal. Hospital Course 36-year-old female who is day 5 status post presents to the emergency department complaining of chest pain. She states the chest pain began last night and is worse with inspiration. She called her bicycle repairman, Dr. Weinstein, who instructed her to come to the emergency department for further evaluation. The patient was seen in the OB ED where preeclampsia was ruled out. She was sent to maintain the ED for further workup. CTA negative for PE. Ultrasound of the gallbladder showed acute cholecystitis. The patient denies nausea/vomiting. Denies fever/chills. Endorses right upper quadrant pain, worse with palpation and deep inspiration. 2-3 SP LAP DESTINY BY SURGERY DC TO HOME LATER TODAY DW RN AND PT AND CM SOME ABDOMINAL TENDERNESS Pt Condition on Discharge: Good Discharge Disposition: Discharge Home Discharge Time: <= 30 minutes Discharge Instructions DIET: Follow Instructions for: Heart Healthy Diet, Low Fat Diet Speech Therapy-Diet Recommends: Regular Activities you can perform: Shower Only-No Bath Activities to Avoid: Lifting/Bending, Strenuous Activity, Bathing Follow up Referrals: DIRECTOR [employer] - 3-5 Days PCP Follow-up - 3-5 Days Surgical - 1 Year with Devang Morales MD New Medications: Hydrocodone-Acetaminophen ([place]) 5 Mg-325 Mg Tab 1 TAB PO Q6H PRN for PAIN, #15 TAB 0 Refills Continued Medications: Alprazolam (Xanax) 0.25 Mg Tab 0.25 MG PO Q8H PRN for ANXIETY, TAB 0 Refills Without A Vit W/ Fe F ( Formula A-Free) 1 Tab Tab 1 TAB PO DAILY, TAB Sertraline HCl (Zoloft) 50 Mg Tab 50 MG PO Q6HR PRN for NEEDED, TAB Gene Blair DO May 02, 2017 11:31
[2017-05-02 12:00] VITALS: BP 152/97; PULSE 67; RESP 17; TEMP 96.8; O2SAT 97
[2017-05-02] MEDS ORDERED: GLYCOPYRROLATE 1 MG/5 ML SYRINGE IV PUSH ONE (12:00)
[2017-05-02] MEDS ORDERED: SUCCINYLCHOLINE CHLORIDE 100 MG/5 ML SYRINGE IV PUSH ONE (12:00)
[2017-05-02] MEDS ORDERED: ROCURONIUM INJ 50 MG/5 ML SYRINGE IV PUSH ONE (12:00)
[2017-05-02] MEDS ORDERED: LIDOCAINE HCL 1% PF 5 ML SYRINGE OTHER ONE (12:00)
[2017-05-02] MEDS ORDERED: DEXAMETHASONE SOD PHOS 4 MG/ML VIAL IV ONE (12:00)
[2017-05-02] MEDS ORDERED: ONDANSETRON HCL 4 MG/2 ML VIAL IV ONE (12:00)
[2017-05-02] MEDS ORDERED: PROPOFOL 200 MG/20 ML AMP IV ONE (12:00)
[2017-05-02] MEDS ORDERED: NEOSTIGMINE 5 MG/5 ML SYRINGE IV PUSH ONE (12:00)
--- NOTE | 2017-05-02 15:34 | EKG ---
Date Performed: 05/01/2017 Time Performed: 16:24:27 PTAGE: 36 years EKG: SINUS BRADYCARDIA WITH SINUS ARRHYTHMIA INCOMPLETE RIGHT BUNDLE BRANCH BLOCK This is rather marked sinus bradycardia BORDERLINE ECG NO PREVIOUS TRACING DOCTOR: Tavon Clement Interpretating Date/Time 05/02/2017 15:32:59
--- NOTE | 2017-05-03 06:45 | MP ---
cc: MELANIE COLLAZO,BEST Atkinson M.D. DATE OF SURGERY: 05/02/2017 PREOPERATIVE DIAGNOSIS: Cholecystitis, cholelithiasis acute, five days . POSTOPERATIVE DIAGNOSIS: Cholecystitis, cholelithiasis acute, five days . OPERATION: Laparoscopic cholecystectomy. ANESTHESIA: General. SURGEON: Dr. Morales. INDICATIONS: This is a pleasant lady who recently just had a baby five days ago. She experienced exquisite right upper quadrant pain, nausea, bloatedness. She came to the emergency room, was found to have Dove's sign and radiologic imaging consistent with acute biliary cholecystitis. Plans are made for above. PROCEDURE The patient was brought to the operating room, placed in the supine position. After endotracheal anesthesia her abdomen is prepped with Betadine. We do a time-out. She had already been given antibiotics. We made an incision just below the umbilicus. Veress needle was inserted in the abdomen insufflated to 15 mmHg. The camera is introduced, 10 millimeter trocar. Two other working ports placed, 5 millimeters below the xiphoid, 5 millimeters in between the two previously placed ports. The gallbladder can be seen. It is fairly tense and dilated. We were able to grasp it superiorly and laterally identifying the cystic duct. The cystic artery is almost non-existent. The cystic duct and artery doubly ligated with hemoclips, transected and then the gallbladder is then teased off the gallbladder bed. A small zain was made in the gallbladder because of how tense it was. A minimal amount of bile spilled. This was evacuated with suction. We placed the gallbladder in the Endocatch, pulled out through the umbilical incision. It was passed off the field. We then check our dissection site. There was excellent hemostasis without biliary leakage. The liver is smooth. The peritoneal surfaces are smooth. No other gross abnormalities seen. We checked down the pelvis. Fluid is evacuated. The uterus can be seen. No other gross abnormalities seen. The trocars were removed, after the CO2 and irrigating solution was removed. The fascial layer at the umbilicus closed with 0 Vicryl and the skin at all three sites closed with 4-0 Vicryl. Steri-Strips and sterile bandage applied. The patient tolerated the procedure well. No immediate postop complications. MD MIKAYLA Tello/MARIAN /9:06 AM /6:30 AM
== END 2017-05-02 14:12 | disposition home or self-care (01) ==
LOC: NEPD 14:48 → INTOOBSV 20:01 → NEDA 20:01 → N07B 21:44
PROVIDERS: ADMIT Hospitalist; ATTEND Hospitalist
DX: K80.10 Calculus of gallbladder with chronic cholecystitis without obstruction (principal); O99.63 Diseases of the digestive system complicating the puerperium; F41.1 Generalized anxiety disorder
CPT/HCPCS: 00790; 47562; 71275; 76705; 80053; 81001; 82570; 84156; 84550; 85025; 85027; 88304; 93005; 99285; G0378; J0330; J0696; J1100; J1885; J2060; J2175; J2250; J2270; J2405; J2710; J3010; J7030; Q9967; J0690